=== PATIENT | female | born 1955 | race African-American/Black ===

== ENCOUNTER 2020-09-29 08:33 | Inpatient (IN) | payer OTHER, MEDICAID ==
[~2020-09-29] VITALS: Ht 175.3 cm; Wt 96.8 kg
[2020-09-29] MEDS ORDERED: CLINDAMYCIN 600MG IV 50 ML IV ONE (10:15)
[2020-09-29] MEDS ORDERED: HYDROcodone-ACET 5/325MG TAB PO ONE (10:15)
[2020-09-29] MEDS ORDERED: cefTRIAXone 1GM/50ML D5W 50 ML IV ONE (10:15)
[2020-09-29 10:21] LABS: Albumin 2.8 g/dL (3.4-5.0); Basophils # (auto) 0.1 10 ^3/uL (0-0.2); Calcium 9.3 mg/dL (8.5-10.1); Eosinophils # (auto) 0.3 10 ^3/uL (0-0.8); Hemoglobin 12.2 g/dL (12.2-16.2); Mean Corpuscular Hemoglobin 31.6 pg (28.0-32.0); Potassium 4.3 mmol/L (3.5-5.1); Red Cell Distribution Width 14.6 % (11.8-14.3)
[2020-09-29 10:23] LABS: Hematocrit 37.2 % (36.0-46.0); Lymphocytes # (auto) 1.7 10 ^3/uL (0.4-5.4); Lymphocytes % (auto) 20.5 % (10.0-50.0); Mean Corpuscular Hgb Conc. 32.9 g/dL (32.0-36.0); Mean Corpuscular Volume 96.1 fL (80.0-100.0); Monocytes # (auto) 0.7 10 ^3/uL (0-1.3); Neutrophils # (auto) 5.5 10 ^3/uL (1.6-8.6); Neutrophils % (auto) 66.5 % (37.0-80.0); Red Blood Cells 3.87 10^6/uL (4.0-5.20); White Blood Cell 8.2 10^3/uL (4.4-10.8)
[2020-09-29 10:24] LABS: BUN/Creatinine Ratio 18.1; Bilirubin, Total 0.3 mg/dL (0.2-1.0); Total Protein 8.6 g/dL (6.4-8.2)
[2020-09-29] MEDS ORDERED: NITROGLYCERIN 0.4 MG SL TAB SL PRN (10:45)
[2020-09-29] MEDS ORDERED: DOCUSATE SOD 100 MG CAP PO PRN (10:45)
[2020-09-29] MEDS ORDERED: VANCOMYCIN PER PHARMACY 0 MG IV SCH (10:45)
[2020-09-29] MEDS ORDERED: PNEUMOCOCCAL VACC POLYS 25 MCG/0.5 ML VIAL IM ONE (10:45)
[2020-09-29] MEDS ORDERED: INFLUENZA QUAD 2020-2021 0.5 ML SYRG IM ONE (10:45)
[2020-09-29] MEDS ORDERED: MORPHINE SULF INJ 2 MG/ML SYRINGE 1ML IV PRN ×2 (10:45→17:30)
[2020-09-29 10:51] LABS: Platelet Count (auto) 562 10^3/uL (140-450)
[2020-09-29] MEDS ORDERED: ENOXAPARIN SOD 40 MG/0.4 ML SYRINGE SC ONE (11:15)
[2020-09-29] MEDS ORDERED: PEN400T PO (11:33)
[2020-09-29] MEDS: MORPHINE SULF INJ 2 MG/ML SYRINGE 1ML IV PRN ×2 (11:46→17:47)
[2020-09-29] MEDS: ONDANSETRON HCL 4 MG/2 ML VIAL IV PRN (11:47)
[2020-09-29] MEDS: PIPERACILLIN-TAZOB 3.375GM 100 ML IV SCH ×3 (13:05→23:18)
[2020-09-29] MEDS ORDERED: PENTOXIFYLLINE 400 MG ER TAB PO ONE (13:15)
[2020-09-29] MEDS ORDERED: hydrALAZINE HCL 20 MG/ML VL IV PRN (13:30)
[2020-09-29] MEDS ORDERED: DEXTROSE (50%) 50ML SYRG IV PRN (13:30)
[2020-09-29] MEDS: SODIUM CHLORIDE 0.9% 1,000 ML IV SCH (13:35)
[2020-09-29] MEDS: PENTOXIFYLLINE 400 MG ER TAB PO SCH ×2 (14:25→22:00)
[2020-09-29] MEDS: LORazepam 0.5 MG TAB PO PRN ×2 (14:25→16:54)
[2020-09-29] MEDS ORDERED: VANCOMYCIN 1GM/250ML 250 ML IV ONE (15:00)
[2020-09-29 15:29] LABS: Cholesterol 183 mg/dL (< 200)
[2020-09-29 15:33] LABS: HDL Cholesterol 55 mg/dL (40-59); LDL Cholesterol 112 mg/dL (< 100); Triglycerides 185 mg/dL (< 150)
[2020-09-29] MEDS: VANCOMYCIN 1GM/250ML 250 ML IV SCH (16:53)
[2020-09-29] MEDS: ACCU-CHEK COMFORT CURVE STRIP VI SCH ×2 (17:00→22:00)
[2020-09-29] MEDS: InsuLIN REG 1unit/0.01ml Soln (100units/ml) SC SCH ×2 (17:00→22:00)
[2020-09-29] MEDS ORDERED: HALOPERIDOL LACTATE 5 MG/ML INJ VIAL IM ONE (17:30)
[2020-09-29] MEDS: ACETAMINOPHEN 325 MG TAB PO PRN (18:18)
[2020-09-29] MEDS: ATORVASTATIN 20 MG TAB PO SCH (22:00)
[2020-09-30] MEDS: SODIUM CHLORIDE 0.9% 1,000 ML IV SCH (03:25)
[2020-09-30] MEDS: ONDANSETRON HCL 4 MG/2 ML VIAL IV PRN (03:30)
[2020-09-30] MEDS: LORazepam 2MG/ML-1ML VIAL IV PRN ×2 (03:30→09:50)
[2020-09-30] MEDS: MORPHINE SULF INJ 2 MG/ML SYRINGE 1ML IV PRN (03:30)
[2020-09-30] MEDS: PENTOXIFYLLINE 400 MG ER TAB PO SCH ×3 (06:23→22:00)
[2020-09-30] MEDS: PIPERACILLIN-TAZOB 3.375GM 100 ML IV SCH ×4 (06:23→23:30)
[2020-09-30 06:30] LABS: Albumin 2.2 g/dL (3.4-5.0); Calcium 8.3 mg/dL (8.5-10.1); Phosphorus 3.5 mg/dL (2.5-4.90); Potassium 3.4 mmol/L (3.5-5.1)
[2020-09-30] MEDS: InsuLIN REG 1unit/0.01ml Soln (100units/ml) SC SCH ×4 (07:00→22:00)
[2020-09-30] MEDS: ACCU-CHEK COMFORT CURVE STRIP VI SCH ×4 (07:00→22:00)
[2020-09-30] MEDS: ASPirin 81 mg TAB PO SCH (09:50)
[2020-09-30] MEDS: ENOXAPARIN SOD 40 MG/0.4 ML SYRINGE SC SCH (09:50)
[2020-09-30] MEDS: FOLIC ACID 1 MG, MULTIPLE VITAMIN 10 ML, MAGNESIUM SULF SDV 50% 8 MEQ, THIAMINE INJ 100... INJ SCH ×5 (14:45)
[2020-09-30 17:23] LABS: Alcohol, Urine < 3.0 mg/dL (0-10); Amphetamine Screen, Urine NEGATIVE (NEGATIVE); Barbiturate Scree,Urine NEGATIVE (NEGATIVE); Benzodiazephine Screen, Urine NEGATIVE (NEGATIVE); Cannabinoid Screen, Urine NEGATIVE (NEGATIVE); Cocaine Screen, Urine NEGATIVE (NEGATIVE); Opiate Scree,Urine POSITIVE (NEGATIVE); Phencyclidine Screen, Urine NEGATIVE (NEGATIVE)
[2020-09-30 22:00] VITALS: BP 117/53
[2020-09-30] MEDS: ATORVASTATIN 20 MG TAB PO SCH (23:30)
[2020-10-01] MEDS: VANCOMYCIN 1GM/250ML 250 ML IV SCH ×2 (03:40→17:16)
[2020-10-01] MEDS: SODIUM CHLORIDE 0.9% 1,000 ML IV SCH ×2 (03:42→14:24)
[2020-10-01] MEDS: ACETAMINOPHEN 325 MG TAB PO PRN ×2 (04:01→23:48)
[2020-10-01 04:50] VITALS: BP 131/51
[2020-10-01] MEDS: PIPERACILLIN-TAZOB 3.375GM 100 ML IV SCH ×4 (05:33→23:36)
[2020-10-01 05:46] LABS: Calcium 8.1 mg/dL (8.5-10.1)
[2020-10-01 05:50] LABS: BUN/Creatinine Ratio 20.4
[2020-10-01] MEDS: PENTOXIFYLLINE 400 MG ER TAB PO SCH ×3 (06:00→21:39)
[2020-10-01] MEDS: InsuLIN REG 1unit/0.01ml Soln (100units/ml) SC SCH ×4 (06:44→21:40)
[2020-10-01] MEDS: ACCU-CHEK COMFORT CURVE STRIP VI SCH ×4 (06:44→21:40)
[2020-10-01 09:01] VITALS: BP 101/64
[2020-10-01] MEDS: ASPirin 81 mg TAB PO SCH (09:02)
[2020-10-01] MEDS: HYDROcodone-ACET 5/325MG TAB PO PRN ×2 (09:02→14:23)
[2020-10-01] MEDS: ENOXAPARIN SOD 40 MG/0.4 ML SYRINGE SC SCH (09:03)
[2020-10-01 13:00] VITALS: BP 98/61
[2020-10-01] MEDS ORDERED: IOHEXOL 350 MG/ML 100ML IJ ONE (15:31)
[2020-10-01] MEDS: FOLIC ACID 1 MG, MULTIPLE VITAMIN 10 ML, MAGNESIUM SULF SDV 50% 8 MEQ, THIAMINE INJ 100... INJ SCH ×5 (16:51)
[2020-10-01 17:00] VITALS: BP 95/56
[2020-10-01] MEDS: ONDANSETRON HCL 4 MG/2 ML VIAL IV PRN (18:48)
[2020-10-01] MEDS: MORPHINE SULF INJ 2 MG/ML SYRINGE 1ML IV PRN ×2 (18:48→23:31)
[2020-10-01] MEDS ORDERED: FURO20TA3 PO (19:45)
[2020-10-01] MEDS ORDERED: TOPI25CA5 PO (19:45)
[2020-10-01] MEDS ORDERED: LOSA25TA38 PO (19:45)
[2020-10-01] MEDS ORDERED: CEPH250C PO (19:45)
[2020-10-01] MEDS ORDERED: GABA300C10 PO (19:45)
[2020-10-01] MEDS: ATORVASTATIN 20 MG TAB PO SCH (21:37)
[2020-10-01 22:08] VITALS: BP 100/29
[2020-10-01 23:00] VITALS: BP 109/57
[2020-10-02] MEDS: LORazepam 0.5 MG TAB PO PRN (02:30)
[2020-10-02] MEDS: VANCOMYCIN 1GM/250ML 250 ML IV SCH (04:04)
[2020-10-02 05:00] VITALS: BP 105/58
[2020-10-02] MEDS: SODIUM CHLORIDE 0.9% 1,000 ML IV SCH ×2 (05:25→20:36)
[2020-10-02] MEDS: PENTOXIFYLLINE 400 MG ER TAB PO SCH ×3 (05:44→22:27)
[2020-10-02] MEDS: PIPERACILLIN-TAZOB 3.375GM 100 ML IV SCH (05:45)
[2020-10-02] MEDS: ACCU-CHEK COMFORT CURVE STRIP VI SCH ×4 (06:11→22:28)
[2020-10-02] MEDS: InsuLIN REG 1unit/0.01ml Soln (100units/ml) SC SCH ×4 (06:12→22:00)
[2020-10-02 08:50] VITALS: BP 107/64
[2020-10-02] MEDS: ASPirin 81 mg TAB PO SCH (09:52)
[2020-10-02] MEDS: ENOXAPARIN SOD 40 MG/0.4 ML SYRINGE SC SCH (09:53)
[2020-10-02] MEDS: MORPHINE SULF INJ 2 MG/ML SYRINGE 1ML IV PRN ×2 (09:53→22:21)
[2020-10-02] MEDS ORDERED: levoFLOXacin 500MG 100 ML IV ONE (10:15)
[2020-10-02] MEDS ORDERED: CLOPIDOGREL BISULFATE 75 MG TAB PO ONE (10:15)
[2020-10-02] MEDS: HYDROcodone-ACET 5/325MG TAB PO PRN (11:53)
[2020-10-02] MEDS: FOLIC ACID 1 MG, MULTIPLE VITAMIN 10 ML, MAGNESIUM SULF SDV 50% 8 MEQ, THIAMINE INJ 100... INJ SCH ×5 (12:35)
[2020-10-02 15:18] VITALS: BP 110/70
[2020-10-02 17:28] VITALS: BP 121/64
[2020-10-02 17:33] LABS: INR 1.01 (0.9-1.15); Partial Thromboplastin Time 29.2 sec (23.0-31.2)
[2020-10-02 22:00] VITALS: BP 118/69
[2020-10-02] MEDS: ATORVASTATIN 20 MG TAB PO SCH (22:27)
[2020-10-03] MEDS: LORazepam 0.5 MG TAB PO PRN ×2 (00:43→13:06)
[2020-10-03 05:10] VITALS: BP 120/71
[2020-10-03] MEDS: MORPHINE SULF INJ 2 MG/ML SYRINGE 1ML IV PRN ×4 (05:26→22:21)
[2020-10-03] MEDS: PENTOXIFYLLINE 400 MG ER TAB PO SCH ×3 (05:27→22:20)
[2020-10-03] MEDS: InsuLIN REG 1unit/0.01ml Soln (100units/ml) SC SCH ×4 (06:34→22:00)
[2020-10-03] MEDS: ACCU-CHEK COMFORT CURVE STRIP VI SCH ×4 (06:34→22:20)
[2020-10-03 08:12] LABS: Basophils # (auto) 0 10 ^3/uL (0-0.2); Basophils % (auto) 0.4 % (0.0-2.0); Eosinophils # (auto) 0.2 10 ^3/uL (0-0.8); Hemoglobin 9.5 g/dL (12.2-16.2); Lymphocytes # (auto) 1.2 10 ^3/uL (0.4-5.4)
[2020-10-03 08:14] LABS: Eosinophils % (auto) 2.2 % (0.0-7.0); Hematocrit 28.4 % (36.0-46.0); Lymphocytes % (auto) 12.5 % (10.0-50.0); Mean Corpuscular Hemoglobin 31.5 pg (28.0-32.0); Mean Corpuscular Hgb Conc. 33.3 g/dL (32.0-36.0); Mean Corpuscular Volume 94.6 fL (80.0-100.0); Monocytes # (auto) 1.1 10 ^3/uL (0-1.3); Monocytes % (auto) 11.7 % (0.0-12.0); Neutrophils # (auto) 7.1 10 ^3/uL (1.6-8.6); Neutrophils % (auto) 73.2 % (37.0-80.0); Nucleated Red Blood Cells % 0.1 %; Platelet Count (auto) 482 10^3/uL (140-450); Red Blood Cells 3.01 10^6/uL (4.0-5.20); Red Cell Distribution Width 14.6 % (11.8-14.3); White Blood Cell 9.7 10^3/uL (4.4-10.8)
[2020-10-03 08:29] LABS: Calcium 8.2 mg/dL (8.5-10.1); Potassium 3.3 mmol/L (3.5-5.1)
[2020-10-03 09:19] VITALS: BP 121/79
[2020-10-03] MEDS: ENOXAPARIN SOD 40 MG/0.4 ML SYRINGE SC SCH (10:00)
[2020-10-03] MEDS: levoFLOXacin 500MG 100 ML IV SCH (11:20)
[2020-10-03] MEDS: ASPirin 81 mg TAB PO SCH (11:24)
[2020-10-03] MEDS: CLOPIDOGREL BISULFATE 75 MG TAB PO SCH (11:25)
[2020-10-03] MEDS: HYDROcodone-ACET 5/325MG TAB PO PRN ×2 (13:05→23:11)
[2020-10-03] MEDS ORDERED: POTASSIUM CHLORIDE 40 MEQ, LIDOCAINE 1% (LOCAL ANESTH.) 4 ML in SODIUM CHL 0.9% 250 ML IV ONE (13:45)
[2020-10-03] MEDS: FOLIC ACID 1 MG, MULTIPLE VITAMIN 10 ML, MAGNESIUM SULF SDV 50% 8 MEQ, THIAMINE INJ 100... INJ SCH ×5 (13:45)
[2020-10-03] MEDS: SODIUM CHLORIDE 0.9% 1,000 ML IV SCH (14:45)
[2020-10-03 16:13] VITALS: BP 133/76
[2020-10-03 22:00] VITALS: BP 137/68
[2020-10-03] MEDS: ATORVASTATIN 20 MG TAB PO SCH (22:19)
[2020-10-04] MEDS: LORazepam 0.5 MG TAB PO PRN ×2 (01:12→22:46)
[2020-10-04] MEDS: MORPHINE SULF INJ 2 MG/ML SYRINGE 1ML IV PRN ×4 (02:25→20:09)
[2020-10-04] MEDS: SODIUM CHLORIDE 0.9% 1,000 ML IV SCH ×2 (02:29→22:24)
[2020-10-04] MEDS ORDERED: KETOROLAC TROMETH 30 MG/ML 1ML VIAL IV ONE (02:30)
[2020-10-04 04:48] VITALS: BP 108/58
[2020-10-04] MEDS: PENTOXIFYLLINE 400 MG ER TAB PO SCH ×3 (06:11→22:23)
[2020-10-04] MEDS: InsuLIN REG 1unit/0.01ml Soln (100units/ml) SC SCH ×4 (06:11→22:00)
[2020-10-04] MEDS: ACCU-CHEK COMFORT CURVE STRIP VI SCH ×4 (06:11→22:24)
[2020-10-04 09:00] VITALS: BP 116/59
[2020-10-04] MEDS: levoFLOXacin 500MG 100 ML IV SCH (10:20)
[2020-10-04] MEDS: ASPirin 81 mg TAB PO SCH (10:20)
[2020-10-04] MEDS: CLOPIDOGREL BISULFATE 75 MG TAB PO SCH (10:21)
[2020-10-04] MEDS: ENOXAPARIN SOD 40 MG/0.4 ML SYRINGE SC SCH (10:21)
[2020-10-04] MEDS: HYDROcodone-ACET 5/325MG TAB PO PRN (10:53)
[2020-10-04] MEDS ORDERED: TOPIRAMATE 25 MG TAB PO ONE (11:30)
[2020-10-04] MEDS: FOLIC ACID 1 MG, MULTIPLE VITAMIN 10 ML, MAGNESIUM SULF SDV 50% 8 MEQ, THIAMINE INJ 100... INJ SCH ×5 (12:06)
[2020-10-04 13:00] VITALS: BP 120/69
[2020-10-04] MEDS: GABAPENTIN 300 MG CAP PO SCH ×2 (14:27→22:23)
[2020-10-04 17:00] VITALS: BP 119/69
[2020-10-04 21:57] VITALS: BP 110/63
[2020-10-04] MEDS: LINEZOLID 600MG/300ML 300 ML IV SCH (22:22)
[2020-10-04] MEDS: TOPIRAMATE 25 MG TAB PO SCH (22:23)
[2020-10-04] MEDS: ATORVASTATIN 20 MG TAB PO SCH (22:23)
[2020-10-04] MEDS: HYDROcodone-ACET 10/325MG TAB PO PRN (22:24)
[2020-10-05] MEDS: MORPHINE SULF INJ 2 MG/ML SYRINGE 1ML IV PRN ×2 (00:43→06:47)
[2020-10-05] MEDS: HYDROcodone-ACET 10/325MG TAB PO PRN ×2 (04:31→12:21)
[2020-10-05 05:22] VITALS: BP 138/70
[2020-10-05] MEDS: GABAPENTIN 300 MG CAP PO SCH (05:32)
[2020-10-05] MEDS: PENTOXIFYLLINE 400 MG ER TAB PO SCH (05:32)
[2020-10-05] MEDS: InsuLIN REG 1unit/0.01ml Soln (100units/ml) SC SCH ×2 (06:18→11:30)
[2020-10-05] MEDS: ACCU-CHEK COMFORT CURVE STRIP VI SCH ×2 (06:19→11:54)
[2020-10-05 09:00] VITALS: BP 135/65
[2020-10-05] MEDS: levoFLOXacin 500MG 100 ML IV SCH (09:35)
[2020-10-05] MEDS: ASPirin 81 mg TAB PO SCH (09:35)
[2020-10-05] MEDS: LINEZOLID 600MG/300ML 300 ML IV SCH ×2 (09:35→10:00)
[2020-10-05] MEDS: CLOPIDOGREL BISULFATE 75 MG TAB PO SCH (09:35)
[2020-10-05] MEDS: TOPIRAMATE 25 MG TAB PO SCH (09:36)
[2020-10-05] MEDS: ENOXAPARIN SOD 40 MG/0.4 ML SYRINGE SC SCH (09:37)
== END 2020-10-05 13:20 | disposition home health service (06) | DRG 603 ==
LOC: EDBD 08:33 → ER 08:33 → TELE 08:34 → TELE-CENTR 09-30 20:39
PROVIDERS: ADMIT Hospitalist; ATTEND Family Medicine
DX: L03.115 Cellulitis of right lower limb (principal); E44.0 Moderate protein-calorie malnutrition; E87.1 Hypo-osmolality and hyponatremia; F23 Brief psychotic disorder; L03.116 Cellulitis of left lower limb; I87.2 Venous insufficiency (chronic) (peripheral); I10 Essential (primary) hypertension; E66.9 Obesity, unspecified; E78.5 Hyperlipidemia, unspecified; E78.00 Pure hypercholesterolemia, unspecified; E87.6 Hypokalemia; F03.90 Unspecified dementia, unspecified severity, without behavioral disturbance, psychotic disturbance, mood disturbance, and anxiety; F17.210 Nicotine dependence, cigarettes, uncomplicated; B96.5 Pseudomonas (aeruginosa) (mallei) (pseudomallei) as the cause of diseases classified elsewhere; S80.811A Abrasion, right lower leg, initial encounter; S80.812A Abrasion, left lower leg, initial encounter; F32.9 Major depressive disorder, single episode, unspecified; J44.9 Chronic obstructive pulmonary disease, unspecified; I87.8 Other specified disorders of veins; Z20.828 Contact with and (suspected) exposure to other viral communicable diseases; Z68.31 Body mass index [BMI] 31.0-31.9, adult; Z88.5 Allergy status to narcotic agent; Z71.6 Tobacco abuse counseling
CPT/HCPCS: 36415; 71045; 73706; 80048; 80053; 80061; 80069; 80202; 80307; 82565; 82962; 83036; 83880; 84484; 85025; 85610; 85730; 87040; 87077; 87081; 87186; 87205; 87426; 93926; 93970; 96365; 96367; G0378; J0696; J1815; J1885; J1956; J2001; J2405; J2543; J3490

== ENCOUNTER → 2020-10-10 | Emergency (ER) | payer OTHER, MEDICAID ==
[~2020-10-10] VITALS: Ht 175.3 cm; Wt 74.8 kg
[~2020-10-10] MED LIST: CEPH250C PO; FURO20TA3 PO; GABA300C10 PO; LOSA25TA38 PO; PEN400T PO; TOPI25CA5 PO
[2020-10-10 16:44] VITALS: BP 122/74
== END | disposition left against medical advice (07) ==
LOC: ER 16:16
DX: R06.02 Shortness of breath (principal); Z53.21 Procedure and treatment not carried out due to patient leaving prior to being seen by health care provider
CPT/HCPCS: 93005

== ENCOUNTER 2020-10-13 15:35 | Emergency (ER) | payer OTHER, MEDICAID ==
[~2020-10-13] VITALS: Ht 165.1 cm; Wt 113.4 kg
[2020-10-13] MEDS: NOREPINEPHRINE 8 MG/250ML KIT 250 ML IV SCH ×2 (15:15→16:00)
[~2020-10-13 15:35] MED LIST changes: +CEPH-322 PO; -CEPH250C PO
[2020-10-13] MEDS ORDERED: SODIUM BICARBONATE 8.4% INJ 50ML SYRINGE IV ONE (15:36)
[2020-10-13] MEDS ORDERED: DEXTROSE (50%) 50ML SYRG IV ONE (15:36)
[2020-10-13] MEDS ORDERED: DOPamine 1600mCg/ml 400MG/250ml NSorD5 KIT/BAG IV ONE (15:36)
[2020-10-13] MEDS ORDERED: EPINEPHrine HCL 1 MG/10 ML SYRG IV ONE (15:36)
[2020-10-13] MEDS ORDERED: EPINEPHrine HCL 250 ML IV ONE (15:44)
[2020-10-13] MEDS ORDERED: SODIUM BICARBONATE 50ML VIAL 150 ML in SOD CHL 0.45% 1,000 ML IV ONE (15:45)
[2020-10-13] MEDS ORDERED: EPINEPHrine HCL 250 ML IV SCH (15:45)
[2020-10-13 15:55] VITALS: BP 88/53
[2020-10-13] MEDS ORDERED: SODIUM BICARBONATE 8.4 % INJ 50ML VIAL IV ONE (15:58)
[2020-10-13] MEDS ORDERED: PHENYLEPHRINE IV 250 ML IV ONE (16:16)
[2020-10-13 16:25] LABS: Mean Corpuscular Hgb Conc. 25.5 g/dL (32.0-36.0)
[2020-10-13 16:27] LABS: Hematocrit 16.1 % (36.0-46.0); Mean Corpuscular Hemoglobin 33.8 pg (28.0-32.0); Mean Corpuscular Volume 132.3 fL (80.0-100.0); Red Blood Cells 1.21 10^6/uL (4.0-5.20)
[2020-10-13] MEDS ORDERED: DOPamine 1600MCG/ML D5W 250 ML IV SCH (16:30)
[2020-10-13] MEDS ORDERED: PHENYLEPHRINE IV 250 ML IV SCH (16:30)
[2020-10-13] MEDS ORDERED: PIPERACILLIN-TAZOB 3.375GM 100 ML IV ONE (16:30)
[2020-10-13] MEDS ORDERED: SODIUM CHLORIDE 0.9% 1,000 ML IV ONE (16:30)
[2020-10-13 16:39] LABS: Albumin 1.3 g/dL (3.4-5.0); Magnesium 3.2 mg/dL (1.6-2.6)
[2020-10-13 16:46] VITALS: BP 55/30
[2020-10-13 16:55] LABS: Bilirubin, Total 4.9 mg/dL (0.2-1.0); CRP High Sensitivity 8.81 mg/dL (< 0.3); Total Protein 5.1 g/dL (6.4-8.2)
[2020-10-13 16:56] LABS: Hemoglobin 4.1 g/dL (12.2-16.2); Red Cell Distribution Width 21.9 % (11.8-14.3); White Blood Cell 34.1 10^3/uL (4.4-10.8)
[2020-10-13 16:57] LABS: Potassium 6.7 mmol/L (3.5-5.1)
[2020-10-13 16:58] LABS: Basophils % (manual) 0 (0.0-2.0); Blast Cells 0; Promyelocytes % 0; Reactive Lymphocytes 0
[2020-10-13 16:59] LABS: BUN/Creatinine Ratio 12.9
[2020-10-13 17:03] LABS: INR 2.18 (0.9-1.15)
[2020-10-13 17:05] LABS: Partial Thromboplastin Time 88.3 sec (23.0-31.2)
[2020-10-13 17:30] LABS: Band Neutrophils % (manual) 15; Eosinophils % (manual) 1 (0-7); Lymphocytes % (manual) 26 (10.0-50.0); Metamyelocytes % 7; Monocytes % (manual) 4 (0-12); Myelocytes % 3
== END 2020-10-13 17:45 ==
LOC: ER 15:35 → EDBD 15:35 → ER 17:45
DX: I46.9 Cardiac arrest, cause unspecified (principal); A41.9 Sepsis, unspecified organism; I95.9 Hypotension, unspecified; R41.82 Altered mental status, unspecified; E11.9 Type 2 diabetes mellitus without complications; I10 Essential (primary) hypertension; F17.210 Nicotine dependence, cigarettes, uncomplicated; Z88.6 Allergy status to analgesic agent
CPT/HCPCS: 36415; 36556; 36600; 80053; 82140; 82728; 82805; 83605; 83615; 83735; 84484; 85007; 85027; 85610; 85730; 86141; 87040; 87070; 87077; 87205; 92950; 96365; 96366; 99291; J0171; J1265; J2370; J7042; 94002